=== PATIENT | female | born 1980 | race Caucasian/White ===

== ENCOUNTER 2018-07-16 01:31 | Inpatient (IN) | payer OTHER ==
[~2018-07-16] VITALS: Ht 172.7 cm; Wt 60.1 kg
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
--- NOTE | 2018-07-16 02:23 | NUR ---
[facility] paged on behalf of patient to have the mobile assessment team eval
[2018-07-16 02:35] LABS: AMPHETAMINE SCREEN, URINE Negative (Negative); BARBITURATE SCREEN, URINE Negative (Negative); BENZODIAZEPINE SCREEN, URINE Negative (Negative); CANNABINOID SCREEN, URINE Negative (Negative); COCAINE SCREEN, URINE Negative (Negative); METHADONE SCREEN, URINE Negative (Negative); OPIATE SCREEN, URINE Negative (Negative)
[2018-07-16 02:39] LABS: BASOPHILS # (AUTO) 0.01 x10^3/uL (0-0.1); BASOPHILS % (AUTO) 0 % (0-1); EOSINOPHILS # (AUTO) 0.05 x10^3/uL (0-0.4); EOSINOPHILS % (AUTO) 1 % (1-7); LYMPHOCYTES # (AUTO) 0.97 x10^3/uL (1-3.4); LYMPHOCYTES % (AUTO) 11 % (22-44); MD NO; MEAN CORPUSCULAR HEMOGLOBIN 31.2 pg (27.0-34.8); MEAN CORPUSCULAR VOLUME 91.9 fL (80-100); MEAN PLATELET VOLUME 8.5 fL (7.4-10.4); MONOCYTES # (AUTO) 0.34 x10^3/uL (0.2-0.8); MONOCYTES % (AUTO) 4 % (2-9); NEUTROPHILS # (AUTO) 7.62 x10^3/uL (1.8-6.8); NEUTROPHILS % (AUTO) 85 % (42-75); PLATELET COUNT 192 x10^3/uL (130-400); RED BLOOD COUNT 3.87 x10^6/uL (3.82-5.3); RED CELL DISTRIBUTION WIDTH 13.6 % (9.6-15.2)
[2018-07-16 02:47] LABS: ALANINE AMINOTRANSFERASE 67 U/L (12-78); ALBUMIN 3.9 g/dL (3.4-5.0); ANION GAP 7 mmol/L (5-15); CHLORIDE 107 mmol/L (98-107); CREATININE 1.91 mg/dL (0.55-1.02)
[2018-07-16 02:48] LABS: ACETAMINOPHEN < 2 mcg/mL (10-30); SALICYLATE LEVEL < 1.7 mg/dL (2.8-20.0)
[2018-07-16 02:49] LABS: ALKALINE PHOSPHATASE 169 U/L (45-117); BILIRUBIN,TOTAL 0.2 mg/dL (0.2-1.0); TOTAL PROTEIN 7.2 g/dL (6.4-8.2)
--- NOTE | 2018-07-16 03:28 | NUR ---
Called I again as there has been no call back. Information provided again. Awaiting call back at this time.
--- NOTE | 2018-07-16 04:10 | NUR ---
Call back from I call service. Mobile Assesser to be dispatched to ED at this time.
--- NOTE | 2018-07-16 05:06 | NUR ---
[facility] AT BEDSIDE.
[2018-07-16] MEDS ORDERED: ZIPRASIDONE 20MG CAPSULE PO PRN (06:00)
[2018-07-16] MEDS ORDERED: GABA600T7 PO (06:06)
[2018-07-16] MEDS ORDERED: POLYETHYLENE GLYCOL PO (06:06)
[2018-07-16] MEDS ORDERED: LITH600C PO (06:06)
[2018-07-16] MEDS ORDERED: QUET100T4 PO (06:06)
[2018-07-16] MEDS ORDERED: ZIPRASIDONE 20MG CAPSULE ONE (06:14)
--- NOTE | 2018-07-16 06:18 | NUR ---
PT GIVEN SANDWICH, CHIPS AND DRINK BY EDTA. PT MEDICATED PER AUG. POC DISCUSSED. PT DENIES FURTHER NEEDS AT THIS TIME. SITTER IN PLACE. PT REMAINS CALM, COOPERATIVE, AND PLEASANT AT THIS TIME.
[2018-07-16 06:38] LABS: HCG UR SG 1.004 (1.003-1.030)
[2018-07-16] MEDS ORDERED: ACETAMINOPHEN 325 MG TABLET PO PRN (07:00)
--- NOTE | 2018-07-16 07:36 | NUR ---
report received from LANE castro at 0655 hrs, patient is sleeping in [facility], sitter outside room with line of sight, LANE Guallpa from has called and been given report/updates. This RN has called Lab to inquire about [place] results, as POC hinges on updating [facility] on lithium level. Lab has indicated they will call this RN back when results are available.
[2018-07-16 07:39] LABS: HEMOGLOBIN A1C 5.9 % (4.2-6.3)
[2018-07-16 07:52] LABS: FREE T4 (FREE THYROXINE) 0.63 ng/dL (0.76-1.46)
--- NOTE | 2018-07-16 08:35 | NUR ---
lab has called with result of lithium level 1.5, this RN has updated MD Falcon, has given instructions to contact poison control and inquire about patient's medical clearance.
--- NOTE | 2018-07-16 08:48 | NUR ---
this RN on phone with [facility] poison controlMiladis RN, her suggestion is to initiate IV fluids, and recheck lithium levels looking for a peak and decline at 2 hr intervals, upon finding 2 declining data points then IV fluids can be stopped and patient will then be appropriate for psych facility admission. During that period assessment will Hospitalist Crissy Faclon updated by phone by this RN now. He has ordered NS 1 Liter @ 500 ml/hr over 2 hrs followed 125 mLs hr, and [place] levels trending q 2 hrs till levels are declining x 2 results.
--- NOTE | 2018-07-16 08:57 | NUR ---
This RN talking with patient's spouse, he indicates a chronic use of 1650 mg [place] per day for past 2 years, and 1800 mg per day in the last week which was increased by the patient. patient ceased lithium on thursday and manic episodes began to worsen considerably. Yesterday her doctor's office called back with results of lithium levels, Patient's doctor instructed her to renew 900 mg regular [place] starting yesterday ().
--- NOTE | 2018-07-16 09:04 | NUR ---
regarding the 0848 note by this RN: Poison control has advised neuro assessments and monitoring for onset of tremors during the fluid therapy period, with decline/worsening of condition reported to MD. This RN has discussed POC with senior compliance analystLANE Walker and been instructed to request medical bed placement from Hospitalist Terrie. He has Okayed medical obs admission along with the lithium levels and fluids as previously discussed.
[2018-07-16] MEDS ORDERED: SODIUM CHLORIDE 0.9% 1,000 ML IV ONE (09:08)
--- NOTE | 2018-07-16 10:37 | NUR ---
report given to LANE Valdez, all questions answered, This RN planned to start IV, patient requested bathroom visit first, upon return to room now the patient has been transported without IV access. Charge and Barrel Turner RNs notified by this RN, LANE Valdez called by this RN to update need for IV.
[2018-07-16 11:26] VITALS: BP 131/90
[2018-07-16] MEDS: SODIUM CHLORIDE 0.9% 1,000 ML IV SCH ×2 (13:32→22:52)
[2018-07-16 14:00] VITALS: BP 143/98
[2018-07-16 21:43] VITALS: BP 154/89
[2018-07-16] MEDS: GABAPENTIN 300 MG CAPSULE PO SCH (22:46)
[2018-07-16] MEDS: QUETIAPINE 100MG TABLET PO SCH (22:47)
[2018-07-17 01:21] VITALS: BP 145/99
[2018-07-17 05:07] LABS: BASOPHILS # (AUTO) 0.02 x10^3/uL (0-0.1); BASOPHILS % (AUTO) 0 % (0-1); EOSINOPHILS # (AUTO) 0.05 x10^3/uL (0-0.4); EOSINOPHILS % (AUTO) 1 % (1-7); LYMPHOCYTES # (AUTO) 1.67 x10^3/uL (1-3.4); LYMPHOCYTES % (AUTO) 24 % (22-44); MD NO; MEAN CORPUSCULAR HGB CONC 33.5 g/dL (32.4-35.8); MEAN CORPUSCULAR VOLUME 92.7 fL (80-100); MEAN PLATELET VOLUME 8.1 fL (7.4-10.4); MONOCYTES # (AUTO) 0.48 x10^3/uL (0.2-0.8); MONOCYTES % (AUTO) 7 % (2-9); NEUTROPHILS # (AUTO) 4.83 x10^3/uL (1.8-6.8); NEUTROPHILS % (AUTO) 69 % (42-75); PLATELET COUNT 269 x10^3/uL (130-400); RED BLOOD COUNT 3.69 x10^6/uL (3.82-5.3); RED CELL DISTRIBUTION WIDTH 14.1 % (9.6-15.2)
[2018-07-17 05:08] LABS: CALCIUM 9.2 mg/dL (8.5-10.1); CHLORIDE 122 mmol/L (98-107)
[2018-07-17 05:15] LABS: ALANINE AMINOTRANSFERASE 53 U/L (12-78); ALBUMIN 3.4 g/dL (3.4-5.0); ALKALINE PHOSPHATASE 155 U/L (45-117); ANION GAP 4 mmol/L (5-15); BILIRUBIN,TOTAL 0.6 mg/dL (0.2-1.0); CREATININE 1.15 mg/dL (0.55-1.02); TOTAL PROTEIN 6.4 g/dL (6.4-8.2)
[2018-07-17] MEDS: SODIUM CHLORIDE 0.9% 1,000 ML IV SCH (05:54)
[2018-07-17] MEDS: LEVOTHYROXINE 50 MCG TABLET PO SCH (05:54)
[2018-07-17 09:27] VITALS: BP 129/89
[2018-07-17 15:45] VITALS: BP 134/85
[2018-07-17 20:58] VITALS: BP 156/94
[2018-07-17] MEDS: QUETIAPINE 100MG TABLET PO SCH (23:16)
[2018-07-17] MEDS: GABAPENTIN 300 MG CAPSULE PO SCH (23:16)
[2018-07-18 05:16] VITALS: BP 112/66
[2018-07-18] MEDS: LEVOTHYROXINE 50 MCG TABLET PO SCH (05:33)
[2018-07-18 07:42] VITALS: BP 122/77
[2018-07-18] MEDS: DOCUSATE 100 MG CAPSULE PO SCH (11:00)
[2018-07-18 13:53] VITALS: BP 148/107
[2018-07-18 14:42] LABS: ANION GAP 8 mmol/L (5-15); CALCIUM 10.2 mg/dL (8.5-10.1); CHLORIDE 107 mmol/L (98-107); CREATININE 1.41 mg/dL (0.55-1.02)
[2018-07-18 15:58] VITALS: BP 158/123
[2018-07-18] MEDS ORDERED: hydrALAzine 20 MG/ML, 1ML IV PRN (16:30)
[2018-07-18 19:02] VITALS: BP 137/79
[2018-07-18] MEDS ORDERED: MAGNESIUM HYDROXIDE 8%, 30ML UDC PO SCH (21:00)
[2018-07-19] MEDS: QUETIAPINE 100MG TABLET PO SCH (00:01)
[2018-07-19] MEDS: GABAPENTIN 300 MG CAPSULE PO SCH (00:02)
[2018-07-19] MEDS: DOCUSATE 100 MG CAPSULE PO SCH ×2 (00:02→07:52)
[2018-07-19 01:38] VITALS: BP 131/72
[2018-07-19 05:45] LABS: ANION GAP 6 mmol/L (5-15); CALCIUM 9.1 mg/dL (8.5-10.1); CHLORIDE 113 mmol/L (98-107); CREATININE 1.26 mg/dL (0.55-1.02)
[2018-07-19] MEDS: LEVOTHYROXINE 50 MCG TABLET PO SCH (06:23)
[2018-07-19 07:27] VITALS: BP 111/69
[2018-07-19 07:41] VITALS: BP 111/69
[2018-07-19 13:58] VITALS: BP 110/67
[2018-07-20] MEDS ORDERED: LEVOTHYROXINE 75 MCG TABLET PO SCH (06:00)
== END 2018-07-19 17:38 | DRG 885 ==
LOC: ED 02:18 → INTOOBSV 06:01 → EDIP 06:01 → OBSVTOIN 09:21 → 3NW 10:34 → 3NE 18:04
PROVIDERS: ADMIT Internal Medicine; ATTEND Internal Medicine
DX: F31.2 Bipolar disorder, current episode manic severe with psychotic features (principal); N17.0 Acute kidney failure with tubular necrosis; E87.0 Hyperosmolality and hypernatremia; E87.1 Hypo-osmolality and hyponatremia; E87.2 Acidosis; E03.9 Hypothyroidism, unspecified; F41.9 Anxiety disorder, unspecified; K59.00 Constipation, unspecified; R73.9 Hyperglycemia, unspecified
CPT/HCPCS: 36415; 80048; 80053; 80178; 80307; 80329; 81025; 83036; 84439; 84443; 85025; 99285; G0378; G0480; J7030

== ENCOUNTER 2018-08-11 15:46 | Emergency (ER) | payer OTHER ==
[~2018-08-11] VITALS: Ht 172.7 cm; Wt 68.0 kg
[~2018-08-11 15:46] MED LIST: GABA600T7 PO; LITH600C PO; POLYETHYLENE GLYCOL PO; QUET100T4 PO
[2018-08-11 16:06] VITALS: BP 107/75
[2018-08-11 17:14] LABS: BASOPHILS # (AUTO) 0.01 x10^3/uL (0-0.1); BASOPHILS % (AUTO) 0 % (0-1); EOSINOPHILS # (AUTO) 0.02 x10^3/uL (0-0.4); EOSINOPHILS % (AUTO) 0 % (1-7); LYMPHOCYTES # (AUTO) 1.31 x10^3/uL (1-3.4); LYMPHOCYTES % (AUTO) 25 % (22-44); MD NO; MEAN CORPUSCULAR HEMOGLOBIN 31.3 pg (27.0-34.8); MEAN CORPUSCULAR HGB CONC 33.8 g/dL (32.4-35.8); MEAN CORPUSCULAR VOLUME 92.8 fL (80-100); MEAN PLATELET VOLUME 7.7 fL (7.4-10.4); MONOCYTES # (AUTO) 0.27 x10^3/uL (0.2-0.8); MONOCYTES % (AUTO) 5 % (2-9); NEUTROPHILS # (AUTO) 3.56 x10^3/uL (1.8-6.8); NEUTROPHILS % (AUTO) 69 % (42-75); PLATELET COUNT 225 x10^3/uL (130-400); RED BLOOD COUNT 3.79 x10^6/uL (3.82-5.3); RED CELL DISTRIBUTION WIDTH 14.4 % (9.6-15.2)
[2018-08-11 17:26] LABS: ALBUMIN 4.1 g/dL (3.4-5.0); ANION GAP 7 mmol/L (5-15); CALCIUM 8.9 mg/dL (8.5-10.1); CHLORIDE 109 mmol/L (98-107); CREATININE 1.47 mg/dL (0.55-1.02)
--- NOTE | 2018-08-11 18:39 | NUR ---
PT MOVED FROM LOBBY TO 21
--- NOTE | 2018-08-11 19:23 | NUR ---
pt presented with c/o tingling toes for a few days. Bilateral hands numbness and tingling. pt was in hospital for lithium toxicity and was in bed for several days. erp at bedside for eval
== END 2018-08-11 19:51 | disposition home or self-care (01) ==
LOC: ED 19:41
DX: G62.9 Polyneuropathy, unspecified (principal); N18.9 Chronic kidney disease, unspecified; E03.9 Hypothyroidism, unspecified; F31.9 Bipolar disorder, unspecified
CPT/HCPCS: 36415; 80048; 80178; 82040; 84703; 85025; 99283